=== PATIENT | female | born 1985 | race African-American/Black ===

== ENCOUNTER 2025-01-02 22:50 | Emergency (ER) | payer OTHER, SELFPAY ==
--- NOTE | ~2025-01-02 | CT_ITS ---
EXAMINATION: CT ABDOMEN PELVIS WITH IV CONTRAST HISTORY: 3wks s/p tummy tuck, drainage at site COMPARISON: There are no prior studies for available comparison. TECHNIQUE: CT scan of the abdomen and pelvis was performed following administration of 85 mL Omnipaque 350 using standard departmental protocol. Coronal and sagittal reformatted images were generated and reviewed. Oral contrast material was not administered at the request of the referring physician. This CT exam was performed with one or more of the following dose reduction techniques: automated exposure control, adjustment of the mA and/or kV according to patient size, use of iterative reconstruction technique. DLP: 829 mGy-cm FINDINGS: LOWER CHEST: The visualized lung bases are clear. There is no pleural effusion. CARDIOVASCULATURE: The heart is normal in size. There is no pericardial effusion. LIVER: The liver is normal in size and contour. No liver mass is identified. The hepatic and portal veins are patent. GALLBLADDER / BILE DUCTS: The gallbladder is unremarkable. There is no intra or extrahepatic biliary ductal dilatation. SPLEEN: The spleen is normal in size. No focal splenic lesion is identified. PANCREAS: The pancreas is unremarkable in appearance. ADRENAL GLANDS: Within normal limits. KIDNEYS/RETROPERITONEUM: The right kidney is malrotated. No renal calculi are identified. There is no hydronephrosis. No renal masses are identified. LYMPH NODES: No abdominal or pelvic lymphadenopathy. VASCULATURE: The abdominal aorta is normal in caliber. There is a retroaortic left renal vein. MESENTERY/PERITONEUM: No free fluid. No masses. There is no free intraperitoneal gas. STOMACH: The stomach is collapsed, limiting evaluation. SMALL BOWEL: The small bowel is normal in caliber. COLON: There is a large amount of stool throughout the colon. APPENDIX: Normal. URINARY BLADDER/PELVIC ORGANS: The urinary bladder is unremarkable. There is no adnexal mass. BONES / SOFT TISSUES: Postsurgical changes are noted involving the anterior abdominal wall. There is diffuse infiltration of the fat of the anterior abdominal wall. There is a fluid collection within the subcutaneous fat just inferior to the umbilicus measuring 4.0 x 1.6 x 2.7 cm. Additional fluid collections are seen in both flanks measuring 2.3 x 1.4 x 3.0 cm on the right and 7.4 x 2.5 x 3.6 cm on the left. CT/CT abdomen pelvis w IV con IMPRESSION: 1. Postsurgical changes involving the anterior abdominal wall. There are fluid collections within the subcutaneous fat just inferior to the umbilicus and in both flanks as described, which could represent seromas or abscesses. 2. Large amount of stool throughout the colon. Electronically signed by: Fantasma Tucker MD 01/03/2025 10:26 AM EDT
[2025-01-02 23:17] VITALS: BP 122/78; PULSE 84; RESP 18; TEMP 36.6; O2SAT 99; BMI 32.4
[2025-01-03 01:10] LABS: Basophils Absolute Auto 0.1 X10*3/uL (0.0-0.2); Basophils Percent Auto 1.4 % (0-2); Eosinophils Absolute Auto 0.2 X10*3/uL (0.0-0.4); Eosinophils Percent Auto 4.2 % (0-4); Hematocrit 32.6 % (37.0-47.0); Hemoglobin 10.9 g/dl (12.0-16.0); Imm Gran Abs Auto 0.01 X10*3/uL (0.00-0.03); Imm Gran Pct Auto 0.2 % (0.0-0.4); Lymphocytes Absolute Auto 2.4 X10*3/uL (1.2-4.9); Lymphocytes Percent Auto 48.5 % (20-40); MANUAL DIFF FLAG NO; Mean Corpuscular HGB Conc 33.4 g/dl (31.0-35.0); Mean Corpuscular Hemoglobin 29.1 pg (27.0-33.0); Mean Corpuscular Volume 87.2 fL (80.0-98.0); Mean Platelet Volume 8.5 fL (9.4-12.3); Monocytes Absolute Auto 0.4 X10*3/uL (0.1-1.2); Monocytes Percent Auto 7.4 % (2-11); Neutrophils Absolute Auto 1.9 x10*3/uL (2.0-8.3); Neutrophils Percent Auto 38.3 % (45-73); Platelet Count 374 X10*3/uL (160-400); Red Blood Count 3.74 X10*6/uL (4.20-5.50); Red Cell Distribution Width 13.9 % (11.0-16.0)
[2025-01-03 01:25] LABS: Alanine Aminotransferase 16 U/L (0-31); Albumin Level 4.5 g/dL (3.5-5.0); Alkaline Phosphatase 75 U/L (39-117); Anion Gap 12 (12-20); Aspartate Amino Transferase 16 U/L (5-31); Bilirubin Direct 0.2 mg/dL (0.0-0.5); Bilirubin Total 0.5 mg/dL (0.0-1.0); Blood Urea Nitrogen 11 mg/dL (9-16); Calcium 9.4 mg/dL (8.4-10.2); Carbon Dioxide 26 mmol/L (22-29); Chloride 107 mmol/L (96-108); Creatinine Clr Calc Pharmacy 141.2; Estimated Glomerular Filt Rate > 60; Glucose Random 92 mg/dL (60-115); Potassium 3.9 mmol/L (3.3-5.1); Sodium 141 mmol/L (135-145)
--- OUTSIDE RECORDS SUMMARY | 2025-01-03 04:53 | XMS_ITS | Patient Health Record ---
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 Role Phone HUGO ANDRES Unavailable [phone] Allergies Allergen (clinical drug ingredient) Drug/Non Drug Allergy documented on EMR Reaction Allergy Type Onset Date Status Penicillin Unknown Drug Allergy Active Reason For Referral No Information Medications Medication SIG (Take, Route, Frequency, Duration) Notes Start Date End Date Status Motrin IB 800 mg 1 tablet as needed O rally Q8H for 3 day(s) 10/26/2018 Active Doxycycline Hyclate 100 mg 1 tablet Orally BID for 10 day(s) 10/25/2018 Active Orilissa 150 MG 1 tablet Orally Once a day for 90 day(s) 10/10/2018 Active Lysteda 650 MG 2 tablet one time Or ally every 8 hrs for 3 day(s) 10/25/2018 Active Orilissa 200 MG 1 tablet Orally BID for 3 months 10/25/2018 Active Depo-Provera 150 MG/ML 1 ml Intramuscula r patient to bring to office for administration for 90 day(s) Active Social History Tobacco Use: Social History Observation Description Date Details (start date - stop date) Never Smoker NA - NA Tobacco Status: Question Answer Notes Patient is a never smoker Problems Problem Type SNOMED Code ICD Code Onset Dates Problem Status W/U Status Risk Notes Problem Female genital organ symptoms (293224540) Unspecified symptom associated with female genital organs (625.9) Active confirmed Migrated -Problem List-325 7-[facility] [employer]-2012 Problem 046792527 Endometriosis (N80.9) Active confirmed Problem 980501352 Dysmenorrhea (N94.6) Active confirmed Problem 559189910 Screening for cervical cancer (Z12.4) Active confirmed Problem 32736777 PCB (post coital bleeding) (N93.0) Active confirmed Problem 765485291 Routine gynecological examination (Z01.419) Active confirmed Problem 797991262 UTI symptoms (R39.9) Active confirmed Problem 556522705 Menorrhagia with regular cycle (N92.0) Active confirmed Problem 585196083 Screening examination for venereal disease (Z11.3) Active confirmed Problem 61565989 Pelvic adhesions (N73.6) Active confirmed Problem Postoperative examination (Z09) Active confirmed Problem 35093364 Hydrosalpinx (N70.11) Active confirmed Problem 200118520 Vagina bleeding (N93.9) Active confirmed Problem 03146725 Pelvic pain (R10.2) Active confirmed Problem 22195267 Dyspareunia in female (N94.10) Active confirmed Plan Of Treatment Pending Test Test Name Order Date HSV 1/2 IGM AB, IFA (SERUM) (Q-30538) CBC (H/H, RBC, INDICES, WBC, PLT) (Q-175 9) 01/06/2018 Insurance Providers Payer Name Payer Address Payer Phone Subscriber Number Group Number Insured Name Patient Relationship to Insured Coverage Start Date Coverage End Date BCFL O [address] [facility] [place], [place] [id number] Olesya Cook Self - patient is the insured 8 0 Medical (General) History Medical History History ICD Code chronic pelvic pain menorrhgia dyspaurenia Surgical History Surgery Date(Month/Year) tubal ligation laparoscopy ruptured cyst
[2025-01-03 06:27] VITALS: BP 101/64; PULSE 77; TEMP 36.8; O2SAT 99
[2025-01-03 07:24] VITALS: BP 115/66; PULSE 84; RESP 14; TEMP 36.6; O2SAT 99
[2025-01-03] MEDS: 0.9 % Sodium Chloride 1,000 ML 999 ML IV (08:51)
--- NOTE | 2025-01-03 08:51 | PC.NURSE ---
Assumed care of pt approx 0700. A/O x 3, resting comfortably. No apparent s/s of distress. #20 IV to left AC, IVF infusing.
--- NOTE | 2025-01-03 09:10 | ED.GENADULT ---
HPI - General Adult General Chief complaint: Wound/Laceration Stated complaint: Tummy izzy 3 wks ago, swelling to incision Time Seen by Provider: 01/03/25 08:04 Source: patient, RN notes reviewed and old records reviewed Mode of arrival: ambulatory History of Present Illness ED Provider: Shruthi Ortez PA-C HPI narrative: 39-year-old female with a past medical history abdominal plasty 3 weeks ago in [place] presenting to the ED complaining yellow/pink drainage from surgical site x 1 week. States was initially clear drainage which changed to pink over the past few days. Admits she has been getting her lymphatic massages. States area became increasingly firm. Denies fever, chills, nausea, vomiting, diarrhea/constipation, dysuria/hematuria Related Data Allergies Allergy/AdvReac Type Severity Reaction Status Date / Time Penicillins Allergy Unknown Verified 01/02/25 23:20 Review of Systems Review of Systems: Yes all other systems are reviewed and are negative Constitutional: Constitutional: Reports as per [facility] Past Medical History Attestation statement: The following information was validated with the patient. Source: old records reviewed Physical Exam ED Vital Signs: Vital Signs - 24 hr 01/02/25 23:17 01/03/25 06:27 01/03/25 07:24 Temperature 97.9 F 98.2 F 98 F Pulse Rate 84 77 84 Respiratory Rate 18 14 Blood Pressure 122/78 101/64 115/66 Pulse Oximetry 99 99 99 Oxygen Delivery Method Room Air Room Air Room Air BMI result Body Mass Index 32.4 Const General: cooperative, healthy appearing and no acute distress Orientation/consciousness: patient oriented x3 Limitations: no limitations [facility] Head: Yes normal to inspection and Yes atraumatic Ears: hearing grossly normal bilaterally General nose exam: Normal external nose present Face and sinus: Yes normal facial exam Eyes General: appearance normal, both eyes and all related structures EOM: EOMs intact bilaterally Neck Neck: Yes normal visual inspection and Yes no meningeal signs Resp Effort & Inspection: normal respiratory effort and no respiratory distress Auscultation: clear to auscultation bilaterally Cardio Rate: regular rate Heart sounds: S1 normal heart sound present and S2 normal heart sound present GI Other: Healing surgical incision noted to lower abdomen and periumbilical region. Small amount of drainage appreciated. Firm/indurated. No fluctuance. No dehiscence. No erythema Palpation (GI): Soft to palpation, Tenderness to palpation present (GI) (Lower abdomen), no guarding and not rigid General: Yes no CVA tenderness Back/Spine/Pelvis Back: no CVA tenderness Skin Rashes: no rashes Wounds: no wounds Neuro General: patient oriented x3, tone normal and no meningeal signs Cranial nerves: Yes CN's II-XII intact bilaterally Gait exam (Neuro): Normal gait present Extrem General: Yes normal to inspection Course Course Course Narrative: -no leukocytosis. H/H stable. Labs otherwise reassuring CT abdomen pelvis w IV con IMPRESSION: 1. Postsurgical changes involving the anterior abdominal wall. There are fluid collections within the subcutaneous fat just inferior to the umbilicus and in both flanks as described, which could represent seromas or abscesses. 2. Large amount of stool throughout the colon. > will consult General surgery >> general surgery evaluated patient in the ED, suspect seroma rather than abscess. No antibiotic indicated at this time. Patient can follow up outpatient in their office. Strict return precautions discussed. Patient comfortable with plan Results discussed with patient including worrisome signs and symptoms and strict return precautions, and when to return to the emergency department. They verbalized understanding and feel safe for discharge at this time. Medications Administered Discontinued Medications Generic Name Dose Route Start Last Admin Trade Name Freq PRN Reason Stop Dose Admin Sodium Chloride 1,000 mls @ 999 mls/hr 01/03/25 08:30 01/03/25 12:08 Ns IV 01/03/25 09:30 Infused .Q1H1M JAE Infusion Iohexol 100 ml 01/03/25 09:57 01/03/25 09:57 Iohexol 350 Mg/Ml 100 Ml Infus..Btl IV 01/03/25 09:58 85 ml ONCE ONE Administration Medical Decision Making Medical Decision Making [facility] Narrative: 39-year-old female with a past medical history abdominal plasty 3 weeks ago in Sod presenting to the ED complaining yellow/pink drainage from surgical site x 1 week. On exam vital signs stable, NAD, nontoxic appearing, physical exam as noted above. Abdomen is soft with mild lower abdominal tenderness surrounding incision site. Firm. No fluctuance/induration or dehiscence. Concern for seroma vs hematoma vs underlying abscess. Lower suspicion for acute appendicitis/diverticulitis at this time. Low suspicion for severe sepsis Plan: Labs, UA, CT AP, IVF Please refer to course for remaining clinical decision making, interpretation of labs/imaging results, and discussions with consultants and/or family members. Differential Diagnosis Differential Diagnoses: The differential diagnosis associated with the presentation includes As above Admission/Observation Consideration of admission/observation: Escalation of care including admission/observation considered Consult Healthcare Provider Management of the patient was discussed with: Base Brander (General surgery) Lab Data MDM Lab Attestation statement: I reviewed the patient's lab results. 01/03/25 01:04 01/03/25 01:04 Labs: Lab Results 01/03/25 Range/Units 01:04 WBC 5.0 (4.8-10.8) X10*3/uL RBC 3.74 L (4.20-5.50) X10*6/uL Hgb 10.9 L (12.0-16.0) g/dl Hct 32.6 L (37.0-47.0) % MCV 87.2 (80.0-98.0) fL MCH 29.1 (27.0-33.0) pg MCHC 33.4 (31.0-35.0) g/dl RDW 13.9 (11.0-16.0) % Plt Count 374 (160-400) X10*3/uL MPV 8.5 L (9.4-12.3) fL Immature Gran % (Auto) 0.2 (0.0-0.4) % Neut % (Auto) 38.3 L (45-73) % Lymph % (Auto) 48.5 H (20-40) % [place] % (Auto) 7.4 (2-11) % Eos % (Auto) 4.2 H (0-4) % Baso % (Auto) 1.4 (0-2) % Lymph # (Auto) 2.4 (1.2-4.9) X10*3/uL [place] # (Auto) 0.4 (0.1-1.2) X10*3/uL Eos # (Auto) 0.2 (0.0-0.4) X10*3/uL Baso # (Auto) 0.1 (0.0-0.2) X10*3/uL Abs Immat Gran (auto) 0.01 (0.00-0.03) X10*3/uL Absolute Neuts (auto) 1.9 L (2.0-8.3) x10*3/uL Absolute Nucleated RBC 0.000 (0.0-0.012) X10*3/uL Nucleated RBC % (auto) 0.0 (0.0-0.2) /100WBC Sodium 141 (135-145) mmol/L Potassium 3.9 (3.3-5.1) mmol/L Chloride 107 (96-108) mmol/L Carbon Dioxide 26 (22-29) mmol/L Anion Gap 12 (12-20) BUN 11 (9-16) mg/dL Creatinine 0.65 (0.5-1.4) mg/dL Estim Creat Clear Calc 141.2 Estimated GFR > 60 Random Glucose 92 (60-115) mg/dL Calcium 9.4 (8.4-10.2) mg/dL Magnesium 2.1 (1.6-2.6) mg/dL Total Bilirubin 0.5 (0.0-1.0) mg/dL Direct Bilirubin 0.2 (0.0-0.5) mg/dL AST 16 (5-31) U/L ALT 16 (0-31) U/L Alkaline Phosphatase 75 (39-117) U/L Total Protein 7.0 (6.5-8.0) g/dL Albumin 4.5 (3.5-5.0) g/dL Lipase 23 (8-78) U/L Beta HCG, Quant < 2 mIU/mL Independent Interpretation I performed an independent interpretation of an: CT Scan Radiology Impression Discussion of test interpretation with radiology: I have reviewed the radiologist's reading. External Record Review External record reviewed: Inpatient record, Office record, Outpatient record, Prior outpatient labs, Prior outpatient radiology, Primary care record and Outside ED record Tests considered The following testing was considered but not selected: As above Prescription Management I considered prescription management with: Pain Medication and Antibiotic Chronic Conditions Patient?s care impacted by: Other Social Determinants Patient?s care significantly limited by Social Determinants of Health including: Other Social Determinant of Health Discharge Plan Discharge Clinical Impression: Abdominal wall seroma Patient Disposition: Home, Self-Care Instructions: Seroma (DC) Additional Instructions: Your CAT scan shows fluid collections in your subcutaneous fat under your belly button and in your flanks. We recommend close follow up with General surgery. Call their office to make next soonest appointment If pain persists, worsens, abdomen becomes increasingly swollen, you have active/increased drainage, fever, chills, difficulty or inability to urinate or have a bowel movement return to the emergency department Referrals: [facility] [place] [facility] [Provider Group] - 1 week Interventions: ED Discharge Assessment Last Done: 01/03/25 12:11 Discharge Date/Time: 01/03/25 12:16 Print Language: Montenegrin
[2025-01-03 09:26] LABS: Lipase 23 U/L (8-78); Magnesium 2.1 mg/dL (1.6-2.6)
[2025-01-03 09:49] LABS: HCG Quantitative < 2 mIU/mL
[2025-01-03] MEDS: iohexoL 350 MG/ML 100 ML INFUS..BTL IV (09:57)
[2025-01-03 12:11] VITALS: BP 115/66; PULSE 84; RESP 14; TEMP 36.6; O2SAT 99
== END 2025-01-03 12:16 | disposition home or self-care (01) ==
PROVIDERS: Physician Assistant; Emergency Provider Emergency Medicine Emergency Medical Services
DX: L76.34 Postprocedural seroma of skin and subcutaneous tissue following other procedure (principal)
CPT/HCPCS: 36415; 74177; 80048; 80076; 83690; 83735; 84702; 85025; 96360; 96361; 99283; 99284; Q9967

== ENCOUNTER → 2025-01-03 08:25 | Outpatient (BNV) | payer OTHER, SELFPAY | PROVIDERS: Emergency Provider Emergency Medicine Emergency Medical Services; Visit Provider Radiology Diagnostic Radiology | DX: M79.89 Other specified soft tissue disorders (principal); K56.41 Fecal impaction | CPT/HCPCS: 74177 ==